=== PATIENT | male | born 1960 | race Caucasian/White ===

== ENCOUNTER → 2020-07-27 | Outpatient (CLI) | payer OTHER | LOC: M.CT 08:25 | PROVIDERS: ATTEND Family Medicine | DX: E78.00 Pure hypercholesterolemia, unspecified (principal) ==

== ENCOUNTER → 2020-09-01 | Outpatient (CLI) | payer OTHER ==
--- NOTE | 2020-09-01 15:00 | CARDNUC ---
[place] [address] CARDIAC NUCLEAR IMAGING REPORT Name: JONI OSEI Room: [facility]#: [id number] Admission: 09/01/20 Attend Phys: Dorothy Latham, Discharge: Date of : 58 Date of Service: 09/01/20 1459 Report #: [id number] THIS REPORT FOR: cc: Risa Allen Linda J. DO Park,Alex Diaz MD ~ APPROVED REPORT Study performed: 09/01/2020 11:33:19 Indication: elevated calcium score Patient Location: Out-Patient Stress Tech: Ying Proctor Stress Nurse: Neida Bunch RN Ht: 5 ft 6 in Wt: 141 lbs BSA: 1.72 m2 BMI: 22.75 Medical History Medical History: Hyperlipidemia Medications: levitra Allergies: penicillin g Cardiac Risk Factors: Age, Current Smoker, Hyperlipidemia Exercise History: Physically active Resting Data Rest SPECT myocardial perfusion imaging was performed in supine position 30 minutes following the intravenous injection of 9.5 mCi of Tc-99m Sestamibi. Time of rest injection: 1025 The images were gated to evaluate regional wall motion and calculate left ventricular ejection fraction. Administration Route: IV Administration Site: Right AC Exercise Stress At peak stress, the patient was injected intravenously with 31.1mCi of Tc-99m Sestamibi. Time of stress injection: 1150 Administration Route: IV Administration Site: Right AC Heart Rate at time of stress injection: 142 bpm. Patient continued to exercise for 1 minute(s). Gated Stress SPECT was performed 30 [place] [address] CARDIAC NUCLEAR IMAGING REPORT Name: JONI OSEI Room: [facility]#: [id number] Admission: 09/01/20 Attend Phys: Dorothy Latham, Discharge: Date of : 58 Date of Service: 09/01/20 1459 Report #: [id number] injection. The images were gated to evaluate regional wall motion and calculate left ventricular ejection fraction. Stress Test Details Stress Test: Exercise stress testing was performed using a Venkat protocol. HR Max Heart Rate (APMHR): 159 bpm Resting HR: 81 bpm Target HR (85% APMHR): 135 bpm Max HR Achieved: 152 bpm % of APMHR: 95 Recovery HR: 101 bpm BP Resting BP: 161/86 mmHg Max BP: 230/83 mmHg Recovery BP: 191/85 mmHg ECG Resting ECG: Sinus Rhythm Stress ECG: Sinus Tachycardia ST Change: Non-ischemic Clinical Reason for Termination: Leg pain/Claudication Exercise duration: 9 min 16 sec Exercise capacity: 10.59 METs Overall Exercise Capacity for Age: Superior Functional Aerobic Impairment 96% Study Data Post stress, the left ventricular ejection was 63%.. Perfusion There is a medium area of moderately reduced uptake in the mid segment of the inferior wall which is seen on the stress images as well as the resting images. This area thickens and moves normally and is most consistent with attenuation artifact. Wall Motion Normal left ventricular wall motion. Nuclear Conclusion ECG Findings: negative for ischemia Clinical Findings: [place] [address] CARDIAC NUCLEAR IMAGING REPORT Name: SEAJONI A Room: [facility]#: [id number] Admission: 09/01/20 Attend Phys: Dorothy Latham, Discharge: Date of : 58 Date of Service: 09/01/201458 Report #: [id number] Nuclear Findings: negative for ischemia Exercise Capacity: normal Left Ventricular Function: normal This study reveals a fixed defect in the mid inferior segment, may be related to diaphragmatic attenuation artifact. However, a nontransmural infarct is unable to be excluded. There is normal LV systolic function. <ELECTRONICALLY SIGNED> By: Alex Burroughs MD 09/01/201458 58 58 Alex Burroughs MD /INF
== END ==
LOC: M.NUC 08-04 12:23 → M.CRD 08-31 09:00 → M.NUC 08-31 10:00
PROVIDERS: ATTEND Internal Medicine
DX: R93.1 Abnormal findings on diagnostic imaging of heart and coronary circulation (principal); R00.0 Tachycardia, unspecified; E78.5 Hyperlipidemia, unspecified